=== PATIENT | male | born 1970 | race Caucasian/White ===

== ENCOUNTER 2020-03-02 12:05 | Emergency (ER) | payer OTHER ==
[~2020-03-02] VITALS: Ht 182.9 cm; Wt 122.3 kg
[2020-03-02 12:27] LABS: HEMATOCRIT 43.8 % (42.0-52.0); HEMOGLOBIN 14.4 gm/dL (14.0-18.0); MCHC 32.8 g/dL (28.0-37.0); MCV 82.4 fL (80.0-100.0); MPV 7.3 fl. (7.2-11.1); RBC 5.32 mil/uL (4.50-6.00); RDW-CV 14.7 % (10.5-14.5); WBC 9.2 thou/uL (4.0-11.0)
[2020-03-02 12:41] LABS: CALCIUM 9.5 mg/dL (8.5-10.1); POTASSIUM 3.2 mmol/L (3.5-5.1)
[2020-03-02 12:45] LABS: ALBUMIN 3.9 g/dL (3.4-5.0); APTT 21.5 Seconds (25.0-31.3); PROTIME 10.2 Seconds (9.20-11.50); TOTAL BILIRUBIN 0.5 mg/dL (<0.1-1.0); TOTAL PROTEIN 7.7 g/dL (6.4-8.2)
[2020-03-02 13:08] VITALS: BP 166/96
--- NOTE | 2020-03-03 12:48 | EKG ---
[place] [address] ELECTROCARDIOGRAM REPORT Name: FLAKO GÓMEZ Room: [facility]#: [id number] Admission: 03/02/20 Attend Phys: Discharge: 03/02/20 Date of : 68 Date of Service: 03/02/20 1228 Report #: [id number] THIS REPORT FOR: //name// [facility] ED Test Date: 2020-03-02 Test Time: 12:28:56 Pat Name: FLAKO GÓMEZ Department: Room: Gender: Donation Specialist: [facility] : 1970 Requested By: Juan Carlos Aranda Order Number: [id number] MD: Zane Rodriguez Measurements Intervals [place] Rate: 67 P: 23 PA: 167 QRS: -12 QRSD: 106 T: -9 QT: 416 QTc: 439 Interpretive Statements Sinus rhythm Probable left atrial enlargement Left ventricular hypertrophy Inferior infarct, old No previous ECG available for comparison Electronically Signed On 03-03-2020 12:47:48 [employer]BER [employer] by Zane Rodriguez [email or web address] <ELECTRONICALLY SIGNED> By: Mike Rodriguez MD, [facility] 03/03/20 1247 1228 1228 Mike Rodriguez MD, [facility] /EPI
== END 2020-03-02 13:08 | disposition short-term general hospital (02) ==
LOC: M.ERS 12:05
PROVIDERS: Emergency Medicine
DX: I63.9 Cerebral infarction, unspecified (principal)